=== PATIENT | female | born 1990 | race Caucasian/White ===

== ENCOUNTER 2022-07-10 18:05 | Emergency (ER) | payer OTHER, SELFPAY ==
[2022-07-10 18:18] VITALS: BP 130/75; PULSE 82; RESP 18; TEMP 37.1; O2SAT 100
--- NOTE | 2022-07-10 18:53 | ED.URI ---
HPI - URI/Sore Throat General Chief Complaint: Upper Respiratory Infection Stated Complaint: Sore Throat Time Seen by Provider: 07/10/22 18:54 History of Present Illness HPI Narrative: 32 y/o female presented for c/o sore throat for 2 days. Endorses treatment for strep throat 1 month ago with PCN, completed course as directed with immediate improvement in symptoms. States symptoms feel similar but not as severe this time. Endorses body aches, fever/chills. Denies cough, sob, wheezing, n/v/d. Taking Tylenol and ibuprofen without significant relief. Related Data Home Medications Medication Instructions Recorded Confirmed norethindrone acetate 1.5 1 tablet PO DAILY 04/06/22 07/10/22 mg-ethinyl estradiol 30 mcg tablet (Aurovela) lactobacillus combination no.4 3 3,000 mmu cells PO DAILY 07/10/22 07/10/22 billion cell capsule (Probiotic) Allergies Allergy/AdvReac Type Severity Reaction Status Date / Time No Known Allergies Allergy Verified 07/10/22 18:24 Review of Systems Review of Systems: CONSTITUTIONAL: Denies body aches, fever, chills, or sweats. EYES: Denies visual changes, redness, or discharge. ENT: Denies rhinorrhea, congestion, or otalgia. CARDIOVASCULAR: Denies chest pain, palpitations, or edema. RESPIRATORY: Denies dyspnea. GASTROINTESTINAL: Denies abdominal pain, nausea, vomiting, or diarrhea. SKIN: Denies rash, itching, or wounds. MUSCULOSKELETAL: Denies back pain, joint pain, or myalgia. NEUROLOGIC: Denies headache Exam Narrative: GENERAL: Ill-appearing, no acute distress. EYES: conjunctivae clear ENT: Mucous membranes moist. TMs pearly rodriguez with normal light reflex bilaterally; no tragal tenderness. Oropharynx erythematous without lesions. Tonsils enlarged 1+ without exudate. No drooling, no hoarseness, no trismus, uvula midline. No tripod positioning, hot potato voice, or soft palate swelling. NECK: Supple. Bilateral anterior cervical lymphadenopathy CHEST: Clear to auscultation, breath sounds equal. HEART: Regular rate and rhythm. No murmur heard. SKIN: Warm, dry, no rash. NEURO: Alert and oriented x3. Course Course Emergency Course: Patient is aware of diagnosis, understands and agrees to treatment plan. Anticipatory guidance given. Patient agrees to follow-up as directed and is aware of reasons to seek care at the emergency department. Portions of this record may have been created with voice recognition software Level of Care: Express Care Visit Vital Signs Vital signs: Vital Signs Temperature 98.7 F 07/10/22 18:18 Pulse Rate 82 07/10/22 18:18 Respiratory Rate 18 07/10/22 18:18 Blood Pressure 130/75 07/10/22 18:18 Pulse Oximetry 100 07/10/22 18:18 Oxygen Delivery Room Air 07/10/22 18:18 Temperature 98.7 F 07/10/22 18:18 Pulse Rate 82 07/10/22 18:18 Respiratory Rate 18 07/10/22 18:18 Blood Pressure 130/75 07/10/22 18:18 Pulse Oximetry 100 07/10/22 18:18 Oxygen Delivery Room Air 07/10/22 18:18 MDM - URI/Sore Throat MDM Narrative Medical decision making narrative: strep result reviewed with pt. Advise supportive treatments. Patient is appropriate for outpatient treatment and follow-up. Differential Diagnosis Differential diagnosis: Likely upper respiratory infection, viral infection and pharyngitis Lab Data Labs: Strep Screen Positive Group A Strep *(Reference Range: Negative)* Discharge Plan Discharge Clinical Impression: Strep pharyngitis Patient Disposition: Home, Self-Care Condition: Stable Instructions: Antibiotic Form, Strep Throat (ED) Additional Instructions: - Take the antibiotic as directed. Fever and sore throat typically resolve within one to three days. Most patients can return to work after 24 hours of antibiotic therapy, provided you are fever free and otherwise well. -Eat and drink things that are easy to swallow, like soft foods
== END 2022-07-10 19:10 | disposition home or self-care (01) ==
PROVIDERS: Emergency Provider Nurse Practitioner Family
DX: J02.0 Streptococcal pharyngitis (principal)
CPT/HCPCS: 87880; 99213; G0463